=== PATIENT | female | born 1985 | race African-American/Black ===

== ENCOUNTER 2019-04-22 09:49 | Outpatient (CLI) | payer BC ==
--- NOTE | 2019-04-22 11:50 | RAD ---
EXAM: XR Ankle Rt 3 View STANDARD PROVIDED CLINICAL HISTORY: Pain FINDINGS: There is no evidence for fracture or other acute osseous abnormality. Alignment appears anatomic. Maddison nt spaces appear preserved. IMPRESSION: No evidence for an acute osseous abnormality. If there is persistent clinical concern, conservative m anagement and follow-up imaging advised.
== END 2019-04-22 09:50 | disposition home or self-care (01) ==
LOC: RAD 09:49
PROVIDERS: ATTEND Physician Assistant
DX: S93.401A Sprain of unspecified ligament of right ankle, initial encounter (principal)

== ENCOUNTER 2021-01-30 14:16 | Outpatient (CLI) | payer BC | END 2021-01-30 14:17 | disposition home or self-care (01) | LOC: BICRAD 14:16 | PROVIDERS: ATTEND Student in an Organized Health Care Education/Training Program | DX: M25.562 Pain in left knee (principal); M17.12 Unilateral primary osteoarthritis, left knee ==